=== PATIENT | male | born 1940 | race Caucasian/White ===

== ENCOUNTER 2021-05-04 16:15 | Emergency (ER) | payer MEDICARE ==
[~2021-05-04 16:15] MED LIST: PAXIL20 MG PO
[2021-05-04 16:43] LABS: BASOPHIL 0.3 % (0-2); EOSINOPHIL 1.9 % (0-7); HCT 39.7 % (42.0-52.0); HGB 13.1 g/dl (13.2-18.0); LYMPHOCYTE 32.2 % (15-48); MCH 31.6 pg (25.0-31.0); MCV 95.7 fL (78.0-100.0); MONOCYTE 9.5 % (0-12); MPV 9.1 fL (6.0-9.5); NEUTROPHIL 55.6 % (41-80); NRBC 0; PLT 225 K/uL (150-400); RBC 4.15 M/uL (4.70-6.00); RDW 12.4 % (11.5-14.0); WBC 6.4 K/uL (4.0-10.5)
[2021-05-04 17:03] LABS: ALBUMIN 3.5 g/dL (3.4-5.0); BILIRUBIN - TOTAL 0.8 mg/dL (0.2-1.0); BUN/CREAT RATIO (CALC) 14.1 RATIO; CREATININE 0.78 mg/dL (0.67-1.17); GLOBULIN (CALCULATION) 3.9 g/dL; POTASSIUM 3.8 mmol/L (3.5-5.1); TOTAL PROTEIN 7.4 g/dL (6.4-8.2)
[2021-05-04] MEDS ORDERED: ZPAK PO (18:30)
== END 2021-05-04 18:59 | disposition home or self-care (01) ==
LOC: FER 16:15
PROVIDERS: Emergency Medicine
DX: U07.1 COVID-19 (principal); I10 Essential (primary) hypertension; E11.9 Type 2 diabetes mellitus without complications; Z23 Encounter for immunization
CPT/HCPCS: 36415; 71045; 80053; 82728; 85025; 85379; 86140; 93005; M0243; Q0244

== ENCOUNTER 2021-12-28 17:05 | Emergency (ER) | payer MEDICARE ==
[~2021-12-28 17:05] MED LIST changes: +ZPAK PO
[2021-12-28 18:25] LABS: BASOPHIL 0.3 % (0-2); EOSINOPHIL 0 % (0-7); HCT 43.4 % (42.0-52.0); HGB 14.4 g/dl (13.2-18.0); LYMPHOCYTE 3.5 % (15-48); MCH 32.2 pg (25.0-31.0); MCHC 33.2 g/dL (32.0-36.0); MCV 97.1 fL (78.0-100.0); MONOCYTE 7.1 % (0-12); MPV 9.1 fL (6.0-9.5); NEUTROPHIL 88.7 % (41-80); NRBC 0; PLT 240 K/uL (150-400); RBC 4.47 M/uL (4.70-6.00); RDW 12.2 % (11.5-14.0); WBC 15.3 K/uL (4.0-10.5)
[2021-12-28 18:34] LABS: INR 1.13 (0.9-1.2); PROTHROMBIN TIME 13.9 SECONDS (11.8-13.4); PTT 24.9 SECONDS (24.4-34.7)
[2021-12-28 19:41] LABS: ALBUMIN 3.9 g/dL (3.4-5.0); BILIRUBIN - TOTAL 1.8 mg/dL (0.2-1.0); BUN/CREAT RATIO (CALC) 17.4 RATIO; CREATININE 0.92 mg/dL (0.67-1.17); GLOBULIN (CALCULATION) 3.4 g/dL; TOTAL PROTEIN 7.3 g/dL (6.4-8.2)
[2021-12-28] MEDS ORDERED: AZITHROMYCIN250 MG PO (22:33)
[2021-12-28] MEDS ORDERED: AMOX TR-K CLV1 EAC4 PO (22:33)
[2021-12-28] MEDS ORDERED: MUCINEX DM ER1 EACH PO (22:33)
== END 2021-12-28 23:15 | disposition home or self-care (01) ==
LOC: FER 17:05
PROVIDERS: Emergency Medicine
DX: R07.89 Other chest pain (principal); J18.9 Pneumonia, unspecified organism; I25.10 Atherosclerotic heart disease of native coronary artery without angina pectoris; Z95.5 Presence of coronary angioplasty implant and graft; Z79.82 Long term (current) use of aspirin; Z79.02 Long term (current) use of antithrombotics/antiplatelets; Z79.899 Other long term (current) drug therapy; Z88.8 Allergy status to other drugs, medicaments and biological substances
CPT/HCPCS: 36415; 71045; 71250; 80053; 82553; 84484; 85025; 85610; 85730; 93005; J0696